=== PATIENT | male | born 1960 | race African-American/Black ===

== ENCOUNTER 2016-07-01 18:36 | Emergency (ER) | payer MEDICAID, MEDICARE ==
[~2016-07-01] VITALS: Ht 170.2 cm; Wt 70.0 kg
[2016-07-01] MEDS ORDERED: LIDOCAINE HCL 2%/EPINEPHRINE/PF 10 ML VIAL INFIL ONE (21:15)
[2016-07-01] MEDS ORDERED: DEXAMETHASONE 1MG TABLET PO ONE (21:15)
[2016-07-01 22:45] VITALS: BP 156/60
== END 2016-07-01 22:50 | disposition home or self-care (01) ==
LOC: ER 20:40
DX: L02.216 Cutaneous abscess of umbilicus (principal); J45.909 Unspecified asthma, uncomplicated; F17.210 Nicotine dependence, cigarettes, uncomplicated
CPT/HCPCS: 10060; 99283; J3490; X7700; Z7610; J8540

== ENCOUNTER 2016-07-05 20:15 | Emergency (ER) | payer MEDICARE ==
[~2016-07-05] VITALS: Ht 170.2 cm; Wt 73.0 kg
[2016-07-05 21:28] VITALS: BP 118/53
[2016-07-05] MEDS ORDERED: LIDOCAINE HCL 1% 20ML VIAL (Pyxis) INJ INFIL ONE (22:00)
[2016-07-05] MEDS ORDERED: BACITRACIN ZINC OINT UDPKT TOP ONE (22:00)
== END 2016-07-05 23:40 | disposition home or self-care (01) ==
LOC: ER 21:53
DX: L02.211 Cutaneous abscess of abdominal wall (principal); J45.909 Unspecified asthma, uncomplicated; F17.200 Nicotine dependence, unspecified, uncomplicated; F12.10 Cannabis abuse, uncomplicated
CPT/HCPCS: 10060; 99283; J3490; Z7610

== ENCOUNTER 2016-09-03 14:18 | Emergency (ER) | payer MEDICARE ==
[~2016-09-03] VITALS: Ht 167.6 cm; Wt 70.0 kg
[2016-09-03 14:39] VITALS: BP 145/76
[2016-09-03] MEDS ORDERED: ACETAMINOPHEN WITH CODEINE 300/30MG TABLET PO ONE (22:00)
== END 2016-09-03 23:01 | disposition home or self-care (01) ==
LOC: ER 14:18
DX: M79.662 Pain in left lower leg (principal); F17.210 Nicotine dependence, cigarettes, uncomplicated; F12.10 Cannabis abuse, uncomplicated; F14.10 Cocaine abuse, uncomplicated
CPT/HCPCS: 73590; 99284

== ENCOUNTER 2021-10-07 00:54 | Emergency (ER) | payer OTHER ==
[~2021-10-07] VITALS: Ht 165.1 cm; Wt 65.2 kg
[~2021-10-07 00:54] MED LIST: ABIL5 PO; TRAZ-251 PO
[2021-10-07] MEDS ORDERED: IBUPROFEN 600MG TABLET PO ONE (02:15)
[2021-10-07] MEDS ORDERED: IBUPROFEN 600MG TABLET PO NR (04:45)
[2021-10-07] MEDS ORDERED: LIDO700A30 TP (04:47)
[2021-10-07] MEDS ORDERED: IBUP-2029 MT (04:47)
[2021-10-07 05:00] VITALS: BP 105/60
== END 2021-10-07 05:02 | disposition home or self-care (01) ==
LOC: ER 01:11
DX: S20.211A Contusion of right front wall of thorax, initial encounter (principal); Y08.89XA Assault by other specified means, initial encounter; Y93.89 Activity, other specified; Y92.89 Other specified places as the place of occurrence of the external cause; Y99.8 Other external cause status; F19.10 Other psychoactive substance abuse, uncomplicated; J45.909 Unspecified asthma, uncomplicated; F14.10 Cocaine abuse, uncomplicated; F12.10 Cannabis abuse, uncomplicated
CPT/HCPCS: 71045; 99283